=== PATIENT | male | born 2000 | race Caucasian/White ===

== ENCOUNTER → 2021-03-07 | Outpatient (CLI) | payer BC, OTHER | LOC: RAD 09:00 | DX: S43.431D Superior glenoid labrum lesion of right shoulder, subsequent encounter (principal) | CPT/HCPCS: 73040; 73222; A9577; Q9962 ==

== ENCOUNTER 2022-07-26 18:46 | Emergency (ER) | payer BC ==
[2022-07-26] MEDS ORDERED: FLONASE 0.05% N16 GM (20:30)
[2022-07-26] MEDS ORDERED: DELSYM30 MG/5 ML PO (20:30)
[2022-07-26] MEDS ORDERED: IBUPROFEN600 MG PO (20:30)
== END 2022-07-26 20:44 | disposition home or self-care (01) ==
LOC: ER1 18:46
DX: R05.9 Cough, unspecified (principal); Z20.822 Contact with and (suspected) exposure to COVID-19
CPT/HCPCS: 87081; 87880; 99283; U0002